=== PATIENT | female | born 1940 | race Hispanic/Latino ===

== ENCOUNTER 2016-12-05 10:54 | Outpatient (CLI) | payer MEDICARE ==
--- NOTE | 2016-12-06 11:39 | PET Report ---
PET/CT:12/05/16 10:54:00 CLINICAL: Lung cancer staging. RADIOPHARMACEUTICAL: 13.192mCi F18-FDG. COMPARISON: 02/22/16 PET/CT and CT chest 10/03/16 and 05/29/16 TECHNIQUE- Following intravenous injection of F-18 FDG and an approximately 60 minute uptake period, CT and PET images from the mid skull to the upper thighs were acquired with the patient in the fasted state. No contrast was administered. The CT protocol used for this PET CT study is designed for attenuation correction and anatomic localization of PET abnormalities. This applications manager CT is not desired to produce and cannot replace, [id number] diagnostic CT scans with specific imaging protocols for different body parts and indications. Plasma glucose at the time of this test: 94g/dl. The standardized uptake values (SUV) are normalized to patient body weight and indicate the highest activity concentration (SUV max) in a given disease site. FINDINGS: Brain--Physiologic FDG uptake in the visualized regions of the brain. Neck--Physiologic FDG uptake . Chest--Physiologic FDG uptake in mediastinal blood pool and myocardium. Lungs--The previously described right upper lobe spiculated lung opacity has increased in size and density compared to previous exams. It now measures approximately 2.4 x 2.3 cm with avid FDG uptake and SUV 9.2. It has developed mild central cavitation. No other lung nodule or mass. Stable moderate diffuse emphysema. Pleura/pericardium--No abnormal uptake. Thoracic nodes--No abnormal uptake. Hepatobiliary--No abnormal uptake. Liver background SUV mean, as a reference for comparing FDG studies, is 3.4 compared to 3.3 on the last exam. No liver mass. Spleen--No abnormal uptake. Pancreas--No abnormal uptake. Adrenal Glands--No abnormal uptake. Kidneys/Ureters/Bladder--No abnormal uptake. Abdominopelvic Nodes--No abnormal uptake. Bowel/Peritoneum/Mesentery--No abnormal uptake. Pelvic organs--No abnormal uptake. Bones/Soft Tissues--No abnormal uptake. No suspicious bone lesions. IMPRESSION- 1. A 2.4 cm right upper lobe bronchogenic carcinoma. 2. No evidence of metastasis.
== END 2016-12-05 10:55 | disposition home or self-care (01) ==
LOC: PET 10:54
DX: C10.4 Malignant neoplasm of branchial cleft (principal); J43.9 Emphysema, unspecified
CPT/HCPCS: 78815; 82962; A9552

== ENCOUNTER 2017-04-21 10:51 | Outpatient (CLI) | payer MEDICARE ==
--- NOTE | 2017-04-22 14:17 | Cat Scan Report ---
CT CHEST WITH CONTRAST: 04/21/17 10:51:00 CLINICAL: Malignant neoplasm right lung. Comparison: 10/03/16 TECHNIQUE: Volumetric acquisition and 1.25 mm scan reconstructions after the uneventful intravenous injection of 100cc Omnipaque 300. Consent was obtained prior to the administration of contrast. FINDINGS: A right upper lobectomy has been performed since the last exam. A small right pleural effusion and probable loculated pleural fluid in the right apex. No pulmonary nodule or mass. Moderate diffuse emphysema. Stable left apical pleural scar. No hilar or mediastinal lymphadenopathy. Normal trachea and esophagus. Normal heart and pulmonary arteries. Aortic ectasia. No axillary or supraclavicular lymphadenopathy. The upper abdomen is remarkable for stable fullness in the left adrenal gland but no distinct adrenal mass. Stable mild chronic anterior compression fractures of the T3, T4 and T5 vertebral bodies. These were negative previously but had and have been stable. IMPRESSION: Status post right upper lobectomy. Small right pleural effusion and possible loculated pleural fluid in the right apex. Stable emphysema. No evidence of metastasis.
== END 2017-04-21 10:52 | disposition home or self-care (01) ==
LOC: SPVIMAG 10:51
PROVIDERS: ATTEND Internal Medicine Hematology & Oncology
DX: C34.91 Malignant neoplasm of unspecified part of right bronchus or lung (principal); J43.9 Emphysema, unspecified; J90 Pleural effusion, not elsewhere classified; I77.819 Aortic ectasia, unspecified site; M48.54XA Collapsed vertebra, not elsewhere classified, thoracic region, initial encounter for fracture; Z90.2 Acquired absence of lung [part of]; Z79.899 Other long term (current) drug therapy
CPT/HCPCS: 71260; 82962; Q9967

== ENCOUNTER 2017-10-23 10:14 | Outpatient (CLI) | payer MEDICARE ==
--- NOTE | 2017-10-23 12:43 | Cat Scan Report ---
CT CHEST WITH CONTRAST: 10/23/17 10:14:00 CLINICAL: Lung cancer restaging. Comparison: 04/21/17 TECHNIQUE: Volumetric acquisition and 1.25 mm scan reconstructions after the uneventful intravenous injection of 100cc Omnipaque 300. Consent was obtained prior to the administration of contrast. FINDINGS: Status post right upper lobectomy with stable fluid density in the right apical pleural space. No pulmonary nodule or mass. Stable bilateral centrilobular emphysema. No mediastinal or hilar lymphadenopathy. Normal heart and pulmonary vessels. Stable aortic ectasia and calcification. Normal trachea and esophagus. A thyroid is not identified. No axillary or supraclavicular lymphadenopathy. The upper abdomen is remarkable for stable fullness in the left adrenal gland and no adrenal mass. No suspicious bone lesion. Stable chronic anterior wedge compression fractures of T3, T4 and T5. IMPRESSION: No evidence of disease recurrence or metastasis. Status post right upper lobectomy with stable loculated fluid density in the right apex.
== END 2017-10-23 10:15 | disposition home or self-care (01) ==
LOC: SPVIMAG 10:14
PROVIDERS: ATTEND Internal Medicine Hematology & Oncology
DX: C34.91 Malignant neoplasm of unspecified part of right bronchus or lung (principal); J43.2 Centrilobular emphysema; I77.819 Aortic ectasia, unspecified site; I70.0 Atherosclerosis of aorta; M48.54XA Collapsed vertebra, not elsewhere classified, thoracic region, initial encounter for fracture; Z90.2 Acquired absence of lung [part of]
CPT/HCPCS: 71260; Q9967

== ENCOUNTER 2019-05-04 10:15 | Inpatient (IN) | payer MEDICARE ==
--- NOTE | 2019-05-04 10:45 | Cat Scan Report ---
CT HEAD WITHOUT CONTRAST HISTORY: neuro deficits <6hrs or sx present upon awakening. Code stroke TECHNIQUE: Axial imaging performed from the skull apex through the skull base without the use of con trast. All CT scans at this location are performed using CT dose reduction for ALARA by means of aut omated exposure control. COMPARISON: None FINDINGS: Parenchyma: No acute intracranial hemorrhage or parenchymal abnormality.. Mild hypoattenuation thro ughout the white matter is noted and consistent with chronic microvascular ischemic disease. An appro ximate 1 cm subacute to chronic infarct is suspected in the right superior basal ganglia. No evidence for hemorrhage, mass or extra-axial fluid collection. Ventricles: There is mild diffuse brain atrophy with commensurate ventricular enlargement which is l ikely age appropriate. Soft tissues: Soft tissues including the orbits appear normal. Bones: No acute osseous abnormality. Sinuses: Sinuses and mastoid air cells are clear. IMPRESSION: Volume loss and chronic white matter changes. Subacute to early chronic focal infarct in the superior right basal ganglia suspected. These findings were discussed with Dr. Miller in the emergency department at 1039 hours. Signer Name: Afshin Lowry Jr, MD Signed: 05/04/2019 10:41 AM Workstation Name: [id number]
--- NOTE | 2019-05-04 10:46 | Emergency Department Report ---
ED Neuro Deficit HPI - General Stated Complaint: STROKE Time Seen by Provider: 05/04/19 10:36 - History of Present Illness Initial Comments: [facility] Date of Service: 05/04/2019 10:06:07 Impression: RO Acute Ischemic Stroke Left Hemispheric Mechanism of Stroke: Possible Thromboembolic Possible Cardioembolic Metrics: Last Known Well: 05/04/2019 09:00:59 [employer] Notification Time: 05/04/2019 10:05:24 Arrival Time: 05/04/2019 10:15:45 Stamp Time: 05/04/2019 10:06:07 Time First Login Attempt: 05/04/2019 10:12:25 Video Start Time: 05/04/2019 10:12:25 Symptoms: difficulty speaking NIHSS Start Assessment Time: 05/04/2019 10:27:57 Patient is not a candidate for tPA. Patient was not deemed candidate for tPA thrombolytics because of Eliquis taken in the previous 48 hours.. Video End Time: 05/04/2019 10:37:04 CT head was not reviewed. Advanced imaging CTA head and neck obtained. Advanced imaging CTP obtained. ER physician not notified of the decision on thrombolytics management. Comments: acute onset expressive aphasia - concerning for L frontotemporal stroke. She is unfortunately not a candidate for IV tpa as she took Eliquis in the past 48 hours. CTA/P head/neck pending. Our recommendations are outlined below. Recommendations: Initiate Aspirin 325 MG Daily Lipid Panel to Be Obtained, if Not Done in the Last Three Months Therapies: Physical Therapy, Occupational Therapy, Speech Therapy Assessment When Applicable Dysphaghia Screen: Swallow Evaluation, Bedside NPO Until Swallow Evaluation DVT prophylaxis: Choice of Primary Team Disposition: Follow up with Teleneurology Follow up Sign Out: Discussed with Emergency Department Provider History of Present Illness: Patient is a 78 years old Female. Patient was brought by EMS for symptoms of difficulty speaking 78 yo woman with a hx of afib off AC for an endoscopy developed acute onset confusion and slurred speech starting at approx 0915 per EMS. She has a PM. She has having difficulty using the right arm. She was with family when this started. No significant change per EMS. She last took her Eliquis Friday evening, which was confirmed to be less than 48 hours ago per her . CT head was not reviewed. Examination: 1A: Level of Consciousness - Alert; keenly responsive + 0 1B: Ask Month and Age - 1 Question Right + 1 1C: Blink Eyes & Squeeze Hands - Performs Both Tasks + 0 2: Test Horizontal Extraocular Movements - Normal + 0 3: Test Visual Goss - No Visual Loss + 0 4: Test Facial Palsy (Use Grimace if Obtunded) - Normal symmetry + 0 5A: Test Left Arm Motor Drift - No Drift for 10 Seconds + 0 5B: Test Right Arm Motor Drift - No Drift for 10 Seconds + 0 6A: Test Left Leg Motor Drift - No Drift for 5 Seconds + 0 6B: Test Right Leg Motor Drift - No Drift for 5 Seconds + 0 7: Test Limb Ataxia (FNF/Heel-Quezada) - No Ataxia + 0 8: Test Sensation - Normal; No sensory loss + 0 9: Test Language/Aphasia - Mild-Moderate Aphasia: Some Obvious Changes, Without Significant Limitation + 1 10: Test Dysarthria - Mild-Moderate Dysarthria: Slurring but can be understood + 1 11: Test Extinction/Inattention - No abnormality + 0 NIHSS Score: 3 Patient was informed the Neurology Consult would happen via TeleHealth consult by way of interactive audio and video telecommunications and consented to receiving care in this manner. Due to the immediate potential for life-threatening deterioration due to underlying acute neurologic illness, I spent 35 minutes providing critical care. This time includes time for face to face visit via telemedicine, review of medical records, imaging studies and discussion of findings with providers, the patient and/or family. Dr Rhys Calhoun [facility] - Related Data Allergies/Adverse Reactions: Allergies Allergy/AdvReac Type Severity Reaction Status Date / Time Penicillins Allergy Rash Unverified 02/22/16 08:27 ED Review of Systems ROS: Stated complaint: STROKE Other details as noted in HPI ED Neuro Physical Exam - General Suspected Stroke: Yes - NIHSS Assessment Interval: Baseline 1a. Level of Consciousness: alert/keenly responsive 1b. LOC Questions: answers 1 question correctly 1c. LOC Commands: performs tasks correctly 2. Best Gaze: normal 3. Visual: no visual loss 4. Facial Palsy: normal symmetrical movement 5b. Motor Arm Right: no drift 5a. Motor Arm Left: no drift 6a. Motor Leg Left: no drift 6b. Motor Leg Right: no drift 7. Limb Ataxia: absent 8. Sensory: normal 9. Best Language: mild/moderate aphasia 10. Dysarthria: mild/moderate dysarthria 11. Extinction/Inattention: no abnormality Total Score: 3 Stroke Severity: Minor Stroke Critical care attestation.: If time is entered above; I have spent that time in minutes in the direct care of this critically ill patient, excluding procedure time. ED Disposition Clinical Impression: Aphasia Disposition: DC-09 OP ADMIT IP TO THIS HOSP Is pt being admited?: Yes Condition: Stable
--- NOTE | 2019-05-04 11:00 | Emergency Department Report ---
ED Neuro Deficit HPI - General Stated Complaint: STROKE Time Seen by Provider: 05/04/19 10:36 Source: family, EMS - History of Present Illness Initial Comments: 78-year-old female presents to ED with onset slurred speech, right-sided weakness at approximately 9:15 AM. reports patient complained of her vision, began to drop the newspaper with her right hand and developed slurred speech. states patient was normal prior to 9:15 AM, states she was able to make breakfast and eating, states her speech was also normal earlier this morning. Patient has history of A. fib, stop taking her Eliquis approximately 36 hours ago in preparation for an endoscopy later on this week. -: This morning Last Observed Normal: 09:00 Location: speech, right arm Presenting Symptoms: Present: Weak/Paralyzed One Side, Unable to Speak Clearly History of same: No Place: home Severity: moderate Improves With: none Worsens With: none On Anticoagulants: Yes (eliquis) Context: sudden onset Treatments Prior to Arrival: none - Related Data Home Medications: Home Medications Medication Instructions Recorded Confirmed Last Taken Apixaban [Eliquis] 2.5 mg PO BID 05/04/19 05/04/19 05/02/19 Clorazepate Dipotassium [Tranxene 7.5 mg PO BID 05/04/19 05/04/19 Unknown T-Tab] Levothyroxine [Synthroid] 75 mcg PO QAM 05/04/19 05/04/19 Unknown Losartan [Cozaar] 100 mg PO QDAY 05/04/19 05/04/19 Unknown Metoprolol Tartrate 200 mg PO BID 05/04/19 05/04/19 Unknown Tiotropium Br/Olodaterol HCl 4 gm IH BID 05/04/19 05/04/19 Unknown [Stiolto Respimat Inhal [place]] cloNIDine [Catapres] 0.1 mg PO QDAY 05/04/19 05/04/19 Unknown hydrALAZINE [Apresoline] 50 mg PO TID 05/04/19 05/04/19 Unknown Allergies/Adverse Reactions: Allergies Allergy/AdvReac Type Severity Reaction Status Date / Time lidocaine Allergy Unknown Verified 05/04/19 15:18 Penicillins Allergy Rash Unverified 02/22/16 08:27 all the (akhil) meds Allergy Unknown Uncoded 05/04/19 15:18 ED Review of Systems ROS: Stated complaint: STROKE Other details as noted in HPI Comment: All other systems reviewed and negative Neurological: weakness, other (reports slurred speech) ED Past Medical Hx - Medications Home Medications: Home Medications Medication Instructions Recorded Confirmed Last Taken Type Apixaban [Eliquis] 2.5 mg PO BID 05/04/19 05/04/19 05/02/19 History Clorazepate Dipotassium [Tranxene 7.5 mg PO BID 05/04/19 05/04/19 Unknown History T-Tab] Levothyroxine [Synthroid] 75 mcg PO QAM 05/04/19 05/04/19 Unknown History Losartan [Cozaar] 100 mg PO QDAY 05/04/19 05/04/19 Unknown History Metoprolol Tartrate 200 mg PO BID 05/04/19 05/04/19 Unknown History Tiotropium Br/Olodaterol HCl 4 gm IH BID 05/04/19 05/04/19 Unknown History [Stiolto Respimat Inhal [place]] cloNIDine [Catapres] 0.1 mg PO QDAY 05/04/19 05/04/19 Unknown History hydrALAZINE [Apresoline] 50 mg PO TID 05/04/19 05/04/19 Unknown History ED Neuro Physical Exam - General Limitations: Altered Mental Status General appearance: alert, in no apparent distress Suspected Stroke: Yes - Head Head exam: Present: atraumatic, normocephalic - Eye Eye exam: Present: normal appearance, PERRL, EOMI - ENT ENT exam: Present: mucous membranes moist - Neck Neck exam: Present: normal inspection - Respiratory Respiratory exam: Present: normal lung sounds bilaterally. Absent: respiratory distress - Cardiovascular Cardiovascular Exam: Present: regular rate, irregular rhythm - GI/Abdominal GI/Abdominal exam: Present: soft. Absent: distended, tenderness - Extremities Exam Extremities exam: Present: normal inspection - Neurological Exam Neurological exam: Present: alert, motor sensory deficit. Absent: CN II-XII intact - NIHSS Assessment Interval: Baseline 1a. Level of Consciousness: alert/keenly responsive 1b. LOC Questions: answers 1 question correctly 1c. LOC Commands: performs tasks correctly 2. Best Gaze: normal 3. Visual: no visual loss 4. Facial Palsy: normal symmetrical movement 5b. Motor Arm Right: no drift 5a. Motor Arm Left: no drift 6a. Motor Leg Left: no drift 6b. Motor Leg Right: no drift 7. Limb Ataxia: absent 8. Sensory: normal 9. Best Language: mild/moderate aphasia 10. Dysarthria: mild/moderate dysarthria 11. Extinction/Inattention: no abnormality Total Score: 3 Stroke Severity: Minor Stroke - Psychiatric Psychiatric exam: Present: normal affect, normal mood - Skin Skin exam: Present: warm, dry, intact, normal color ED Course Vital Signs 05/04/19 05/04/19 05/04/19 10:52 11:01 11:08 Temperature 97.6 F Pulse Rate 64 67 Respiratory 15 19 Rate Blood Pressure 158/96 Blood Pressure 170/97 [Right] O2 Sat by Pulse 95 100 99 Oximetry 05/04/19 05/04/19 05/04/19 11:10 12:31 13:01 Temperature Pulse Rate 64 73 Respiratory 19 19 14 Rate Blood Pressure 171/112 174/105 Blood Pressure [Right] O2 Sat by Pulse 99 98 95 Oximetry 05/04/19 05/04/19 05/04/19 14:05 15:01 16:15 Temperature Pulse Rate 92 H Respiratory 22 2 L Rate Blood Pressure 174/105 Blood Pressure 174/105 179/90 [Right] O2 Sat by Pulse 96 98 Oximetry - Lab Data Result diagrams: 05/04/19 10:45 05/04/19 10:45 Lab Results 05/04/19 05/04/19 05/04/19 Range/Units 10:45 10:45 10:45 WBC 7.7 (4.5-11.0) K/mm3 RBC 4.17 (3.65-5.03) M/mm3 Hgb 13.6 (10.1-14.3) gm/dl Hct 40.0 (30.3-42.9) % MCV 96 (79-97) fl MCH 33 H (28-32) pg MCHC 34 (30-34) % RDW 14.6 (13.2-15.2) % Plt Count 208 (140-440) K/mm3 Lymph % (Auto) 8.0 L (13.4-35.0) % [place] % (Auto) 7.9 H (0.0-7.3) % Eos % (Auto) 3.0 (0.0-4.3) % Baso % (Auto) 0.6 (0.0-1.8) % Lymph # 0.6 L (1.2-5.4) K/mm3 [place] # 0.6 (0.0-0.8) K/mm3 Eos # 0.2 (0.0-0.4) K/mm3 Baso # 0.0 (0.0-0.1) K/mm3 Seg Neutrophils % 80.5 H (40.0-70.0) % Seg Neutrophils # 6.2 (1.8-7.7) K/mm3 PT 15.1 H (12.2-14.9) Sec. INR 1.22 H (0.87-1.13) APTT 35.3 (24.2-36.6) Sec. Thrombin Time (15.1-19.6) Sec. Sodium 136 L (137-145) mmol/L Potassium 3.9 (3.6-5.0) mmol/L Chloride 97.0 L (98-107) mmol/L Carbon Dioxide 24 (22-30) mmol/L Anion Gap 19 mmol/L BUN 11 (7-17) mg/dL Creatinine 0.6 L (0.7-1.2) mg/dL Estimated GFR > 60 ml/min BUN/Creatinine Ratio 18 % Glucose 90 (65-100) mg/dL Calcium 9.2 (8.4-10.2) mg/dL Troponin T < 0.010 (0.00-0.029) ng/mL 05/04/19 Range/Units 10:45 WBC (4.5-11.0) K/mm3 RBC (3.65-5.03) M/mm3 Hgb (10.1-14.3) gm/dl Hct (30.3-42.9) % MCV (79-97) fl MCH (28-32) pg MCHC (30-34) % RDW (13.2-15.2) % Plt Count (140-440) K/mm3 Lymph % (Auto) (13.4-35.0) % [place] % (Auto) (0.0-7.3) % Eos % (Auto) (0.0-4.3) % Baso % (Auto) (0.0-1.8) % Lymph # (1.2-5.4) K/mm3 [place] # (0.0-0.8) K/mm3 Eos # (0.0-0.4) K/mm3 Baso # (0.0-0.1) K/mm3 Seg Neutrophils % (40.0-70.0) % Seg Neutrophils # (1.8-7.7) K/mm3 PT (12.2-14.9) Sec. INR (0.87-1.13) APTT (24.2-36.6) Sec. Thrombin Time 15.7 (15.1-19.6) Sec. Sodium (137-145) mmol/L Potassium (3.6-5.0) mmol/L Chloride (98-107) mmol/L Carbon Dioxide (22-30) mmol/L Anion Gap mmol/L BUN (7-17) mg/dL Creatinine (0.7-1.2) mg/dL Estimated GFR ml/min BUN/Creatinine Ratio % Glucose (65-100) mg/dL Calcium (8.4-10.2) mg/dL Troponin T (0.00-0.029) ng/mL - EKG Data -: EKG Interpreted by In EKG shows normal: QRS complexes, ST-T waves Interpretation: other (aftrial fib; right axis deviation; occasional PVC's) - Radiology Data Radiology results: report reviewed, image reviewed - Medical Decision Making 78-year-old female presents ED with aphasia and dysarthria. Likely embolic in nature due to his history of A. fib, patient being off of her Eliquis. CT shows no evidence of hemorrhagic stroke. Patient not a candidate for TPA because she has taken Eliquis in the last 48 hrs. CTA negative for any large vessel occlusion. Will admit to hospitalist for further management. - Differential Diagnosis ischemic CVA, hemorrhagic CVA, TIA - Thrombolytic Inclusion/Exclusion Thrombolytic Contraindications: Patient on Anticoagulants Critical Care Time: Yes Critical care time in (mins) excluding proc time.: 35 Critical care attestation.: If time is entered above; I have spent that time in minutes in the direct care of this critically ill patient, excluding procedure time. Critical Care Time: 35 minutes ED Disposition Clinical Impression: Aphasia Disposition: DC-09 OP ADMIT IP TO THIS HOSP Is pt being admited?: Yes Condition: Stable Time of Disposition: 13:50
[2019-05-04 11:13] LABS: Basophils % (Auto) 0.6 % (0.0-1.8); Eosinophils # (Auto) 0.2 K/mm3 (0.0-0.4); Hemoglobin 13.6 gm/dl (10.1-14.3); Lymphocytes # (Auto) 0.6 K/mm3 (1.2-5.4); Mean Corpuscular HGB Conc 34 % (30-34); Mean Corpuscular Volume 96 fl (79-97); Monocytes # (Auto) 0.6 K/mm3 (0.0-0.8); Monocytes % (Auto) 7.9 % (0.0-7.3); Platelet Count 208 K/mm3 (140-440); Red Blood Count 4.17 M/mm3 (3.65-5.03); Red Cell Distribution Width 14.6 % (13.2-15.2)
[2019-05-04 11:22] LABS: INR 1.22 (0.87-1.13)
[2019-05-04 11:23] LABS: Partial Thromboplastin Time 35.3 Sec. (24.2-36.6)
[2019-05-04 11:29] LABS: BUN/Creatinine Ratio 18; Blood Urea Nitrogen 11 mg/dL (7-17); Calcium 9.2 mg/dL (8.4-10.2); Hemolysis Index 26
[2019-05-04] MEDS ORDERED: DULCOLAX PR PRN (13:20)
[2019-05-04] MEDS ORDERED: MILK OF MAGNESIA PO PRN (13:20)
[2019-05-04] MEDS ORDERED: PHENERGAN PR PRN (13:20)
[2019-05-04] MEDS ORDERED: TYLENOL PO PRN (13:20)
[2019-05-04] MEDS ORDERED: ZOFRAN IV PRN (13:20)
--- NOTE | 2019-05-04 13:20 | History and Physical Report ---
History of Present Illness Chief complaint: She is weak, and cannot talk History of present illness: 78 YO Female with Malnutrition, Atrial Fib on Therapeutic Anticoagulation last dose taken less than 48 hours prior to presentation to ED, Malnutrition presents to ED for evaluation. Pt has dysarthria and is unable to speak clearly and provide history. Pt history taken from family members who are at bedside during exam and interview. As per family, the patient experienced acute onset of blurred vision, right arm and leg weakness with inability to hold object in her right hand, and slurred speech around 0915 hrs. EMS was notified, and upon arrival the patient was found to have neurologic deficit. A code stroke was called and the patient was transported to [facility]. Pt seen and evaluated in ED and found to have symptoms consistent with Acute CVA. Teleneurology consulted and the patient was deemed not to be a candidate for TPA. Pt admitted to Telemetry and initiated on CVA protocol. NO reports to fever, chills, CP, Palpitations, NVD, Trauma, falls, productive cough, skin rash, or recent ill contacts. No prior admission for review. All medication listed at time of admission was reconciled. Past History Past Medical History: atrial fib, other (Malnutrition) Past Surgical History: No surgical history, Other (reviewed) Social history: , lives with family. denies: smoking, alcohol abuse, prescription drug abuse Family history: hypertension Medications and Allergies Allergies Allergy/AdvReac Type Severity Reaction Status Date / Time lidocaine Allergy Unknown Verified 05/04/19 15:18 Penicillins Allergy Rash Unverified 02/22/16 08:27 all the (akhil) meds Allergy Unknown Uncoded 05/04/19 15:18 Home Medications Medication Instructions Recorded Confirmed Last Taken Type Apixaban [Eliquis] 2.5 mg PO BID 05/04/19 05/04/19 05/02/19 History Clorazepate Dipotassium [Tranxene 7.5 mg PO BID 05/04/19 05/04/19 Unknown History T-Tab] Levothyroxine [Synthroid] 75 mcg PO QAM 05/04/19 05/04/19 Unknown History Losartan [Cozaar] 100 mg PO QDAY 05/04/19 05/04/19 Unknown History Metoprolol Tartrate 200 mg PO BID 05/04/19 05/04/19 Unknown History Tiotropium Br/Olodaterol HCl 4 gm IH BID 05/04/19 05/04/19 Unknown History [Stiolto Respimat Inhal [place]] cloNIDine [Catapres] 0.1 mg PO QDAY 05/04/19 05/04/19 Unknown History hydrALAZINE [Apresoline] 50 mg PO TID 05/04/19 05/04/19 Unknown History Review of Systems ROS unobtainable: due to mental status Exam - Constitutional Vitals: Temp Pulse Resp BP Pulse Ox 97.6 F 73 14 174/105 95 05/04/19 11:08 05/04/19 13:01 05/04/19 13:01 05/04/19 13:01 05/04/19 13:01 General appearance: Present: mild distress - EENT Eyes: Present: PERRL ENT: hearing intact, clear oral mucosa - Neck Neck: Present: supple, normal ROM - Respiratory Respiratory effort: normal Respiratory: bilateral: CTA - Cardiovascular Rhythm: irregularly irregular - Extremities Extremities: pulses symmetrical, No edema Peripheral Pulses: within normal limits - Abdominal General gastrointestinal: Present: soft, non-tender, non-distended, normal bowel sounds Female genitourinary: Present: normal - Integumentary Integumentary: Present: clear, warm, dry - Musculoskeletal Musculoskeletal: right sided weakness - Psychiatric Psychiatric: no appropriate mood/affect, no intact judgment & insight, no memory intact - Neurologic Neurologic: CNII-XII intact, focal deficits, no moves all extremities, no gait normal Results - Labs CBC & Chem 7: 05/04/19 10:45 05/04/19 10:45 Labs: Abnormal lab results 05/04/19 05/04/19 05/04/19 Range/Units 10:45 10:45 10:45 MCH 33 H (28-32) pg Lymph % (Auto) 8.0 L (13.4-35.0) % [place] % (Auto) 7.9 H (0.0-7.3) % Lymph # 0.6 L (1.2-5.4) K/mm3 Seg Neutrophils % 80.5 H (40.0-70.0) % PT 15.1 H (12.2-14.9) Sec. INR 1.22 H (0.87-1.13) Sodium 136 L (137-145) mmol/L Chloride 97.0 L (98-107) mmol/L Creatinine 0.6 L (0.7-1.2) mg/dL Assessment and Plan - Patient Problems (1) CVA (cerebral vascular accident) Current Visit: Yes Status: Acute Qualifiers: Precerebral and cerebral artery: middle cerebral artery Laterality of affected vessel: left Plan to address problem: CVA Protocol: Admit to telemetry, CT Head, MRI Brain, MRA Brain, Echo, Carotid Doppler, Neuro check, Neurology consulted, lipid panel, statin therapy, antiplatelet therapy, Aspiration precautions, seizure precautions, PT/OT/Speech Therapy consulted (2) 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 (3) Hypertensive urgency Current Visit: Yes Status: Acute Plan to address problem: Permissive hypertension overnight, monitor BP q shift, (4) Severe malnutrition Current Visit: Yes Status: Acute Plan to address problem: Encourage increased protein intake when tolerating diet. (5) Atrial fibrillation Current Visit: Yes Status: Acute Qualifiers: Atrial fibrillation type: persistent Qualified Code(s): I48.1 - Persistent atrial fibrillation Plan to address problem: Therapeutic anticoagulation. supportive care. (6) DVT prophylaxis Current Visit: Yes Status: Acute Plan to address problem: SCD to BLE while in bed, therapeutic anticoagulation.
--- NOTE | 2019-05-04 13:40 | Cat Scan Report ---
NECK CT ANGIOGRAM 05/04/2019 HISTORY: Stroke. FINDINGS: Contrast-enhanced CT angiographic images of the neck were obtained. In addition to the axia l images, sagittal and coronal reformatted images were obtained. In addition, 3 plane MIP reconstruct ions were produced. There is no evidence of carotid bifurcation stenosis. Mild atherosclerotic calcifications are associa terrence with the carotid bifurcations and aortic arch. There is some atherosclerotic irregularity and narrowing at the origin of the dominant left vertebral artery. The right vertebral artery is relatively hypoplastic but otherwise unremarkable. Soft tissue structures in the neck demonstrate no evidence of significant abnormality. IMPRESSION: No evidence of significant or measurable carotid bifurcation stenosis. NASCET like criteria were used in this evaluation. All CT scans at this location are performed using dose reduction to ALARA by means of automated expos ure control. Signer Name: Stephan Santiago MD Signed: 05/04/2019 1:36 PM Workstation Name: [id number]
--- NOTE | 2019-05-04 13:45 | Cat Scan Report ---
HEAD CT ANGIOGRAM 05/04/2019 HISTORY: Stroke FINDINGS: Contrast-enhanced CT angiographic images of the intracranial circulation were obtained. In addition to the axial images, sagittal and coronal reformatted images were obtained. In addition, 3 p jaleel MIP reconstructions were produced. Atherosclerotic vascular calcifications are associated with the distal internal carotid arteries bila terally, slightly more prominently on the right than on the left. This results in moderate narrowing of the distal right internal carotid artery at the level of the cavernous sinus. Is also some atherosclerotic calcification associated with the proximal intracranial vertebral arteri es bilaterally. Intracranial contours are otherwise unremarkable. There is no evidence of vessel occlusion. There is no evidence of aneurysm. IMPRESSION: No significant abnormality. All CT scans at this location are performed using dose reduction to ALARA by means of automated expos ure control. Signer Name: Stephan Santiago MD Signed: 05/04/2019 1:40 PM Workstation Name: [id number]
[2019-05-04] MEDS ORDERED: REGLAN PO PRN (14:20)
--- NOTE | 2019-05-04 14:25 | Vascular Lab Report ---
BILATERAL CAROTID DOPPLER ULTRASOUND INDICATION : stroke TECHNIQUE: Grayscale and color Doppler imaging performed through the neck. COMPARISON: None FINDINGS: Right: There is mild partially calcified plaques are noted at the bifurcation. Peak systolic veloci ty in the CCA is 46 cm/s with end-diastolic velocity of 10 cm/s. Peak systolic velocity in the proxim al ICA is 56 cm/s with end-diastolic velocity of 17 cm/s. ICA to CCA ratio is less than 2. There is a ntegrade flow in the ECA and the vertebral artery. Left: There is moderate partially calcified plaques are noted at the bifurcation and proximal ICA. Pe ak systolic velocity in the CCA is 26 cm/s with end-diastolic velocity of 7 cm/s. Peak systolic veloc ity in the proximal ICA is 68 cm/s with end-diastolic velocity of 15 cm/s. ICA to CCA ratio is less t rausch 2. There is antegrade flow in the ECA and the vertebral artery. IMPRESSION: No hemodynamically significant stenosis by NASCET criteria. Mild to moderate partially ca lcified plaques at both carotid bifurcations. There is less than 50% luminal narrowing bilaterally. Signer Name: Afshin Lowry Jr, MD Signed: 05/04/2019 2:20 PM Workstation Name: [id number]
--- NOTE | 2019-05-04 18:34 | Progress Note ---
Assessment and Plan This is an 78 YO F who clinically had a TIA, likely secondary to being off of Eliquis for a procedure. REcommend: Will start standard heparin drip, no bolus for now(pharmacy to enter). Perhaps she can get the EGD in house. Consider GI consult. If this will not happen fine to switch back to Eliquis Stroke work up- echo, carotids, lipids and A1C, PT/OT/ST , MRI BRain and MRA, will need pretreatment with Ativan Continue care for all medical issues as you are doing. POC discussed at length with pt and daughter at bedside. Subjective Date of service: 05/04/19 Interval history: Pt seen by teleneur on arrival. Pt with known afib, off Eliquis at least 2 days for GI procedure. Pt presented with dysarthria and right sided weakness. Back at baseline now. she was evaluated for Alteplase and found not to be a candidate. Objective - Vital Sign Vital Signs - 12hr 05/04/19 05/04/19 05/04/19 10:52 11:01 11:08 Temperature 97.6 F Pulse Rate 64 67 Pulse Rate [ Left Dorsalis Pedis] Pulse Rate [ Left Radial] Pulse Rate [ Right Dorsalis Pedis] Pulse Rate [ Right Radial] Respiratory 15 19 Rate Blood Pressure 158/96 Blood Pressure 170/97 [Right] O2 Sat by Pulse 95 100 99 Oximetry 05/04/19 05/04/19 05/04/19 11:10 12:31 13:01 Temperature Pulse Rate 64 73 Pulse Rate [ Left Dorsalis Pedis] Pulse Rate [ Left Radial] Pulse Rate [ Right Dorsalis Pedis] Pulse Rate [ Right Radial] Respiratory 19 19 14 Rate Blood Pressure 171/112 174/105 Blood Pressure [Right] O2 Sat by Pulse 99 98 95 Oximetry 05/04/19 05/04/19 05/04/19 14:05 15:01 16:15 Temperature Pulse Rate 92 H Pulse Rate [ Left Dorsalis Pedis] Pulse Rate [ Left Radial] Pulse Rate [ Right Dorsalis Pedis] Pulse Rate [ Right Radial] Respiratory 22 2 L Rate Blood Pressure 174/105 Blood Pressure 174/105 179/90 [Right] O2 Sat by Pulse 96 98 Oximetry 05/04/19 05/04/19 17:02 17:46 Temperature Pulse Rate 60 Pulse Rate [ 60 Left Dorsalis Pedis] Pulse Rate [ 60 Left Radial] Pulse Rate [ 60 Right Dorsalis Pedis] Pulse Rate [ 60 Right Radial] Respiratory 18 Rate Blood Pressure Blood Pressure [Right] O2 Sat by Pulse Oximetry - General Apperance Constitutional: comfortable - EENT EENT: mucous membranes moist - Respiratory Respiratory: lungs clear - Cardiovascular Cardiovascular: other (irregular) - Gastrointestinal Gastrointestinal: normoactive bowel sounds - Neurologic Cranial nerve examination: PERRL, EOMI, V1/V2/V3 grossly intact, face symmetric, tongue midline Speech examination: intact Motor examination - right side: 5/5: biceps, triceps, wrist flexion, wrist extension, marking machine operator, hip flexors, knee extensors, dorsiflexion, toe extension (EHL), plantarflexion Motor examination - left side: 5/5: biceps, triceps, wrist flexion, wrist extension, marking machine operator, hip flexors, knee extensors, dorsiflexion, toe extension (EHL), plantarflexion Detailed sensory examination: intact Reflexes: 1+: ankle, bicep, knee, tricep Cerebellar examination: other (FNF intact) - Laboratory Findings CBC and BMP: 05/04/19 10:45 05/04/19 10:45 Abnormal Lab Findings: Abnormal Labs 05/04/19 05/04/19 05/04/19 10:45 10:45 10:45 MCH 33 H Lymph % (Auto) 8.0 L [place] % (Auto) 7.9 H Lymph # 0.6 L Seg Neutrophils % 80.5 H PT 15.1 H INR 1.22 H Sodium 136 L Chloride 97.0 L Creatinine 0.6 L - Diagnostic Findings Additional findings: CT head nothing acute, no hemorrhage
[2019-05-04 19:40] LABS: Bilirubin,Urine NEG (Negative); Blood,Urine NEG (Negative); Color,Urine Yellow (Yellow); Urobilinogen,Urine < 2.0 mg/dL (<2.0)
[2019-05-04 19:43] LABS: WBC,Urine < 1.0 /HPF (0.0-6.0)
[2019-05-04 19:50] LABS: Hematocrit 37.4 % (30.3-42.9); Hemoglobin 12.6 gm/dl (10.1-14.3)
[2019-05-04 20:04] LABS: INR 1.9 (0.87-1.13)
[2019-05-04 20:05] LABS: Partial Thromboplastin Time 42.4 Sec. (24.2-36.6)
[2019-05-04] MEDS: HEPARIN/ 0.45% NACL-25,000 UNIT/500 ML 25,000 UNIT/500 ML BAG IV SCH (20:30)
[2019-05-04] MEDS: TRANXENE PO SCH (21:32)
[2019-05-04] MEDS ORDERED: NON-FORMULARY (Tiotropium Br/Olodaterol Hcl [Stiolto Respimat Inhal Spray] 4 GM) IH SCH (22:00)
[2019-05-04] MEDS ORDERED: ELIQUIS PO SCH (22:00)
[2019-05-04] MEDS ORDERED: CLORAZEPATE DIPOTASSIUM 7.5 MG PO SCH (22:00)
[2019-05-05 04:10] LABS: Chol/HDL Ratio 2.07 %
[2019-05-05] MEDS: SYNTHROID PO SCH (05:41)
--- NOTE | 2019-05-05 10:50 | Progress Note ---
History Interval history: CVA. Continue with telemetry monitoring. Follow-up CT Head, MRI Brain, MRA Brain, Echo and Carotid Dopplers. Neurology consultation. Hypertension. Continue antihypertensive medications. Atrial fibrillation. Continue heparin drip for now. Dysphagia. GI to perform EGD with possible dilation today. Hospitalist Physical - Constitutional Vitals: Temp Pulse Resp BP Pulse Ox 97.8 F 67 16 153/70 93 05/05/19 08:10 05/05/19 09:33 05/05/19 08:10 05/05/19 08:10 05/05/19 10:33 General appearance: Present: mild distress Results - Labs CBC & Chem 7: 05/04/19 19:30 05/04/19 10:45 Labs: Laboratory Last Values WBC 7.7 K/mm3 (4.5-11.0) 05/04/19 10:45 RBC 4.17 M/mm3 (3.65-5.03) 05/04/19 10:45 Hgb 12.6 gm/dl (10.1-14.3) 05/04/19 19:30 Hct 37.4 % (30.3-42.9) 05/04/19 19:30 MCV 96 fl (79-97) 05/04/19 10:45 MCH 33 pg (28-32) H 05/04/19 10:45 MCHC 34 % (30-34) 05/04/19 10:45 RDW 14.6 % (13.2-15.2) 05/04/19 10:45 Plt Count 192 K/mm3 (140-440) 05/04/19 19:30 Lymph % (Auto) 8.0 % (13.4-35.0) L 05/04/19 10:45 [place] % (Auto) 7.9 % (0.0-7.3) H 05/04/19 10:45 Eos % (Auto) 3.0 % (0.0-4.3) 05/04/19 10:45 Baso % (Auto) 0.6 % (0.0-1.8) 05/04/19 10:45 Lymph # 0.6 K/mm3 (1.2-5.4) L 05/04/19 10:45 [place] # 0.6 K/mm3 (0.0-0.8) 05/04/19 10:45 Eos # 0.2 K/mm3 (0.0-0.4) 05/04/19 10:45 Baso # 0.0 K/mm3 (0.0-0.1) 05/04/19 10:45 Seg Neutrophils % 80.5 % (40.0-70.0) H 05/04/19 10:45 Seg Neutrophils # 6.2 K/mm3 (1.8-7.7) 05/04/19 10:45 PT 21.4 Sec. (12.2-14.9) H 05/04/19 19:30 INR 1.90 (0.87-1.13) H 05/04/19 19:30 APTT 42.4 Sec. (24.2-36.6) H 05/04/19 19:30 15.7 Sec. (15.1-19.6) 05/04/19 10:45 Heparin Anti-Xa Level 0.30 U.I./ml (0.3-0.7) 05/05/19 09:13 Sodium 136 mmol/L (137-145) L 05/04/19 10:45 Potassium 3.9 mmol/L (3.6-5.0) 05/04/19 10:45 Chloride 97.0 mmol/L (98-107) L 05/04/19 10:45 Carbon Dioxide 24 mmol/L (22-30) 05/04/19 10:45 19 mmol/L 05/04/19 10:45 BUN 11 mg/dL (7-17) 05/04/19 10:45 0.6 mg/dL (0.7-1.2) L 05/04/19 10:45 Estimated GFR > 60 ml/min 05/04/19 10:45 18 % 05/04/19 10:45 Glucose 90 mg/dL (65-100) 05/04/19 10:45 Calcium 9.2 mg/dL (8.4-10.2) 05/04/19 10:45 < 0.010 ng/mL (0.00-0.029) 05/04/19 10:45 Triglycerides 41 mg/dL (2-149) 05/05/19 03:03 Cholesterol 85 mg/dL (50-199) 05/05/19 03:03 47 mg/dL (50-130) L 05/05/19 03:03 41 mg/dL (40-59) 05/05/19 03:03 2.07 % 05/05/19 03:03 Yellow (Yellow) 05/04/19 18:45 Clear (Clear) 05/04/19 18:45 8.0 (5.0-7.0) H 05/04/19 18:45 Ur Specific [place] 1.030 (1.003-1.030) 05/04/19 18:45 30 mg/dl mg/dL (Negative) 05/04/19 18:45 Neg mg/dL (Negative) 05/04/19 18:45 Tr mg/dL (Negative) 05/04/19 18:45 Neg (Negative) 05/04/19 18:45 Neg (Negative) 05/04/19 18:45 Neg (Negative) 05/04/19 18:45 < 2.0 mg/dL (<2.0) 05/04/19 18:45 Ur Leukocyte Esterase Neg (Negative) 05/04/19 18:45 < 1.0 /HPF (0.0-6.0) 05/04/19 18:45 2.0 /HPF (0.0-6.0) 05/04/19 18:45 Active Medications - Current Medications Current Medications: Generic Name Dose Route Start Last Admin Trade Name Freq PRN Reason Stop Dose Admin Acetaminophen 650 mg 05/04/19 13:20 Tylenol PO Q4H PRN Pain, Mild (1-3) Aspirin 325 mg 05/05/19 10:00 Aspirin PO QDAY DUANE Bisacodyl 10 mg 05/04/19 13:20 Dulcolax IN QDAY PRN Constipation Clorazepate Dipotassium 7.5 mg 05/04/19 22:00 05/04/19 21:32 Tranxene PO 7.5 mg BID DUANE Administration Heparin Sodium/Sodium Chloride 25,000 unit in 500 mls @ 14 mls/hr 05/04/19 19:00 05/05/19 03:05 Heparin/ 0.45% Nacl-25,000 Unit/500 Ml IV 700 units/hr TITR DUANE 14 mls/hr Titration Protocol 700 UNITS/HR Levothyroxine Sodium 75 mcg 05/05/19 06:00 05/05/19 05:41 Synthroid PO 75 mcg 0600 DUANE Administration Magnesium Hydroxide 30 ml 05/04/19 13:20 Milk Of Magnesia PO Q4H PRN Constipation Metoclopramide HCl 10 mg 05/04/19 14:20 Reglan PO Q6H PRN Nausea And Vomiting Miscellaneous Medication 4 gm 05/04/19 22:00 Tiotropium Br/Olodaterol Hcl [Stiolto Respimat Inhal [place]] IH BID [facility] Ondansetron HCl 4 mg 05/04/19 13:20 Zofran IV Q8H PRN Nausea And Vomiting Promethazine HCl 25 mg 05/04/19 13:20 Phenergan IN Q6H PRN Nausea And Vomiting Sodium Chloride 10 ml 05/04/19 13:20 Sodium Chloride Flush Syringe 10 Ml IV PRN PRN LINE FLUSH
[2019-05-05] MEDS: TRANXENE PO SCH ×2 (11:29→22:08)
[2019-05-05] MEDS: ASPIRIN PO SCH (11:29)
--- NOTE | 2019-05-05 11:36 | Fluoroscopy Report ---
BARIUM SWALLOW Indication: dysphagia. History of esophageal stricture and dilatation. Technique: Single contrast barium technique utilized to evaluate the esophagus. FINDINGS: To begin the exam, swallowing was evaluated in the lateral position under direct fluorosco py. Swallowing was normal. The esophagus appears normal caliber and mucosal pattern throughout. No convincing stricture, ring or web could be demonstrated on barium swallow. There was severe delay in emptying of the esophagus throughout this exam. Numerous tertiary contracti ons were witnessed. No hiatal hernia. IMPRESSION: Severe esophageal dysmotility with delayed emptying was witnessed throughout this exam. No convincing esophageal stricture was identified. Fluoroscopic time: 3.6 minutes Number of fluoroscopic images: 42 Signer Name: Afshin Lowry Jr, MD Signed: 05/05/2019 11:32 AM Workstation Name: [id number]
--- NOTE | 2019-05-05 13:25 | Gastroenterology Consultation ---
<TONA RUFF - Last Filed: 05/05/19 13:29> History of Present Illness - Reason for Consult Consult date: 05/05/19 dysphagia Requesting physician: KHURRAM MICHELLE - History of Present Illness Patient is a 78 y/o female with PMH of HTN, Afib, malnutrition, and COPD who is previously known to our service. She was seen by our group as an inpatient consult at [facility] 02/2019 for dysphagia with an outpatient EGD with possible dilation scheduled for this week, however patient presented to ED with stroke symptoms likely 2/2 TIA per neurology after being off her anticoagulation (Eliquis) x 2 days for procedure. 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 This afternoon patient was resting in bed w/o acute distress with family at bedside. Reports dysphagia to both solids and liquids that has progressively worsened with now inability to tolerate any PO intake. States she had a previous EGD with dilation a long time ago which improved symptoms (record unavailable). Denies abd pain, N/V, or signs of bleeding. Past History Past Medical History: other (as per HPI) Past Surgical History: No surgical history, Other (reviewed) Social history: , lives with family. denies: smoking, alcohol abuse, prescription drug abuse Family history: hypertension Medications and Allergies Allergies Allergy/AdvReac Type Severity Reaction Status Date / Time lidocaine Allergy Unknown Verified 05/04/19 15:18 Penicillins Allergy Rash Unverified 02/22/16 08:27 all the (akhil) meds Allergy Unknown Uncoded 05/04/19 15:18 Home Medications Medication Instructions Recorded Confirmed Last Taken Type Apixaban [Eliquis] 2.5 mg PO BID 05/04/19 05/04/19 05/02/19 History Clorazepate Dipotassium [Tranxene 7.5 mg PO BID 05/04/19 05/04/19 Unknown History T-Tab] Levothyroxine [Synthroid] 75 mcg PO QAM 05/04/19 05/04/19 Unknown History Losartan [Cozaar] 100 mg PO QDAY 05/04/19 05/04/19 Unknown History Metoprolol Tartrate 200 mg PO BID 05/04/19 05/04/19 Unknown History Tiotropium Br/Olodaterol HCl 4 gm IH BID 05/04/19 05/04/19 Unknown History [Stiolto Respimat Inhal [place]] cloNIDine [Catapres] 0.1 mg PO QDAY 05/04/19 05/04/19 Unknown History hydrALAZINE [Apresoline] 50 mg PO TID 05/04/19 05/04/19 Unknown History Active Meds: Active Medications Acetaminophen (Tylenol) 650 mg PO Q4H PRN PRN Reason: Pain, Mild (1-3) Aspirin (Aspirin) 325 mg PO QDAY [facility] Last Admin: 05/05/19 11:29 Dose: Not Given Documented by: Bisacodyl (Dulcolax) 10 mg IA QDAY PRN PRN Reason: Constipation Clorazepate Dipotassium (Tranxene) 7.5 mg PO BID [facility] Last Admin: 05/05/19 11:29 Dose: Not Given Documented by: Heparin Sodium/Sodium Chloride (Heparin/ 0.45% Nacl-25,000 Unit/500 Ml) 25,000 unit in 500 mls @ 14 mls/hr IV TITR [facility]; Protocol Last Titration: 05/05/19 03:05 Dose: 700 units/hr, 14 mls/hr Documented by: Levothyroxine Sodium (Synthroid) 75 mcg PO 0600 [facility] Last Admin: 05/05/19 05:41 Dose: 75 mcg Documented by: Magnesium Hydroxide (Milk Of Magnesia) 30 ml PO Q4H PRN PRN Reason: Constipation Metoclopramide HCl (Reglan) 10 mg PO Q6H PRN PRN Reason: Nausea And Vomiting Miscellaneous Medication (Tiotropium Br/Olodaterol Hcl [Stiolto Respimat Inhal [place]]) 4 gm IH BID [facility] Ondansetron HCl (Zofran) 4 mg IV Q8H PRN PRN Reason: Nausea And Vomiting Promethazine HCl (Phenergan) 25 mg IA Q6H PRN PRN Reason: Nausea And Vomiting Sodium Chloride (Sodium Chloride Flush Syringe 10 Ml) 10 ml IV PRN PRN PRN Reason: LINE FLUSH medications reviewed/updated as required Review of Systems - Review of Systems All systems: negative Gastrointestinal: other (dysphagia) Exam - Constitutional Vital Signs: Temp Pulse Resp BP Pulse Ox 97.8 F 67 16 153/70 93 05/05/19 08:10 05/05/19 09:33 05/05/19 08:10 05/05/19 08:10 05/05/19 10:33 General appearance: no acute distress - Respiratory Respiratory effort: normal - Cardiovascular Rhythm: other (irregular) - Gastrointestinal General gastrointestinal: Present: soft, non-tender, non-distended, normal bowel sounds - Labs CBC & Chem 7: 05/04/19 19:30 05/04/19 10:45 Lab Results: Laboratory Results - last 24 hr 05/04/19 05/04/19 05/04/19 18:45 19:30 19:30 Hgb 12.6 Hct 37.4 Plt Count 192 PT 21.4 H INR 1.90 H APTT 42.4 H Heparin Anti-Xa Level Triglycerides Cholesterol LDL Cholesterol Direct HDL Cholesterol Cholesterol/HDL Ratio Urine Color Yellow Urine Turbidity Clear Urine pH 8.0 H Ur Specific [place] 1.030 Urine Protein 30 mg/dl Urine Glucose (UA) Neg Urine Ketones Tr Urine Blood Neg Urine Nitrite Neg Urine Bilirubin Neg Urine Urobilinogen < 2.0 Ur Leukocyte Esterase Neg Urine WBC (Auto) < 1.0 Urine RBC (Auto) 2.0 05/05/19 05/05/19 05/05/19 03:03 03:03 09:13 Hgb Hct Plt Count PT INR APTT Heparin Anti-Xa Level 0.14 L 0.30 Triglycerides 41 Cholesterol 85 LDL Cholesterol Direct 47 L HDL Cholesterol 41 Cholesterol/HDL Ratio 2.07 Urine Color Urine Turbidity Urine pH Ur Specific [place] Urine Protein Urine Glucose (UA) Urine Ketones Urine Blood Urine Nitrite Urine Bilirubin Urine Urobilinogen Ur Leukocyte Esterase Urine WBC (Auto) Urine RBC (Auto) Assessment and Plan 1.dysphagia -etiology unclear -will order esophagram today for further evaluation and tentatively schedule EGD with possible dilatation tomorrow -hold heparin drip 6 hours prior to EGD -INR in am -Keep NPO for now -continue PPI and supportive care -will follow <DANIEL GANN - Last Filed: 05/05/19 17:57> Medications and Allergies Active Meds: Active Medications Acetaminophen (Tylenol) 650 mg PO Q4H PRN PRN Reason: Pain, Mild (1-3) Aspirin (Aspirin) 325 mg PO QDAY [facility] Last Admin: 05/05/19 11:29 Dose: Not Given Documented by: Bisacodyl (Dulcolax) 10 mg IA QDAY PRN PRN Reason: Constipation Clorazepate Dipotassium (Tranxene) 7.5 mg PO BID [facility] Last Admin: 05/05/19 11:29 Dose: Not Given Documented by: Heparin Sodium/Sodium Chloride (Heparin/ 0.45% Nacl-25,000 Unit/500 Ml) 25,000 unit in 500 mls @ 14 mls/hr IV TITR [facility]; Protocol Last Titration: 05/05/19 03:05 Dose: 700 units/hr, 14 mls/hr Documented by: Dextrose/Sodium Chloride (D5/0.45ns) 1,000 mls @ 75 mls/hr IV DIRECT [facility] Levothyroxine Sodium (Synthroid) 75 mcg PO 0600 [facility] Last Admin: 05/05/19 05:41 Dose: 75 mcg Documented by: Magnesium Hydroxide (Milk Of Magnesia) 30 ml PO Q4H PRN PRN Reason: Constipation Metoclopramide HCl (Reglan) 10 mg PO Q6H PRN PRN Reason: Nausea And Vomiting Miscellaneous Medication (Tiotropium Br/Olodaterol Hcl [Stiolto Respimat Inhal [place]]) 4 gm IH BID [facility] Ondansetron HCl (Zofran) 4 mg IV Q8H PRN PRN Reason: Nausea And Vomiting Promethazine HCl (Phenergan) 25 mg IA Q6H PRN PRN Reason: Nausea And Vomiting Sodium Chloride (Sodium Chloride Flush Syringe 10 Ml) 10 ml IV PRN PRN PRN Reason: LINE FLUSH Exam - Constitutional Vital Signs: Temp Pulse Resp BP Pulse Ox 97.7 F 68 18 167/86 99 05/05/19 16:31 05/05/19 16:31 05/05/19 16:31 05/05/19 16:31 05/05/19 16:31 - Labs CBC & Chem 7: 05/04/19 19:30 05/04/19 10:45 Lab Results: Laboratory Results - last 24 hr 05/04/19 05/04/19 05/04/19 18:45 19:30 19:30 Hgb 12.6 Hct 37.4 Plt Count 192 PT 21.4 H INR 1.90 H APTT 42.4 H Heparin Anti-Xa Level Triglycerides Cholesterol LDL Cholesterol Direct HDL Cholesterol Cholesterol/HDL Ratio Urine Color Yellow Urine Turbidity Clear Urine pH 8.0 H Ur Specific [place] 1.030 Urine Protein 30 mg/dl Urine Glucose (UA) Neg Urine Ketones Tr Urine Blood Neg Urine Nitrite Neg Urine Bilirubin Neg Urine Urobilinogen < 2.0 Ur Leukocyte Esterase Neg Urine WBC (Auto) < 1.0 Urine RBC (Auto) 2.0 05/05/19 05/05/19 05/05/19 03:03 03:03 09:13 Hgb Hct Plt Count PT INR APTT Heparin Anti-Xa Level 0.14 L 0.30 Triglycerides 41 Cholesterol 85 LDL Cholesterol Direct 47 L HDL Cholesterol 41 Cholesterol/HDL Ratio 2.07 Urine Color Urine Turbidity Urine pH Ur Specific [place] Urine Protein Urine Glucose (UA) Urine Ketones Urine Blood Urine Nitrite Urine Bilirubin Urine Urobilinogen Ur Leukocyte Esterase Urine WBC (Auto) Urine RBC (Auto) Assessment and Plan Patient seen and examined. Agree with note above.
[2019-05-05] MEDS ORDERED: D5/0.45NS 1,000 ML IV SCH (16:00)
--- NOTE | 2019-05-05 17:42 | Progress Note ---
Assessment and Plan This is an 78 YO F who clinically had a TIA, likely secondary to being off of Eliquis for a procedure. REcommend: Continue standard heparin drip. EGD in house. Eliquis post procedure Stroke work up- echo, carotids, lipids and A1C, PT/OT/ST , MRI BRain can not be done, pt has PM that is not compatible Continue care for all medical issues as you are doing. No further recommendations. Subjective Date of service: 05/05/19 Interval history: Pt's symptoms have resolved. On heparin drip. For EGD tomorrow. Objective - Vital Sign Vital Signs - 12hr 05/05/19 05/05/19 05/05/19 08:10 09:33 10:33 Temperature 97.8 F Pulse Rate 68 67 Respiratory 16 Rate Blood Pressure 153/70 O2 Sat by Pulse 96 93 Oximetry 05/05/19 16:31 Temperature 97.7 F Pulse Rate 68 Respiratory 18 Rate Blood Pressure 167/86 O2 Sat by Pulse 99 Oximetry - General Apperance Constitutional: comfortable - EENT EENT: PERRL, mucous membranes moist - Respiratory Respiratory: lungs clear - Cardiovascular Cardiovascular: regular rate - Gastrointestinal Gastrointestinal: normoactive bowel sounds - Neurologic Cranial nerve examination: PERRL, EOMI, face symmetric Motor examination - right side: 5/5: biceps, triceps, wrist flexion, wrist extension, wrap turner, hip flexors, knee extensors, dorsiflexion, toe extension (EHL), plantarflexion Motor examination - left side: 5/5: biceps, triceps, wrist flexion, wrist extension, wrap turner, hip flexors, knee extensors, dorsiflexion, toe extension (EHL), plantarflexion Reflexes: 1+: ankle, bicep, knee, tricep - Laboratory Findings CBC and BMP: 05/04/19 19:30 05/04/19 10:45 Abnormal Lab Findings: Abnormal Labs 05/04/19 05/04/19 05/04/19 10:45 10:45 10:45 MCH 33 H Lymph % (Auto) 8.0 L [place] % (Auto) 7.9 H Lymph # 0.6 L Seg Neutrophils % 80.5 H PT 15.1 H INR 1.22 H APTT Heparin Anti-Xa Level Sodium 136 L Chloride 97.0 L Creatinine 0.6 L LDL Cholesterol Direct Urine pH 05/04/19 05/04/19 05/05/19 18:45 19:30 03:03 MCH Lymph % (Auto) [place] % (Auto) Lymph # Seg Neutrophils % PT 21.4 H INR 1.90 H APTT 42.4 H Heparin Anti-Xa Level Sodium Chloride Creatinine LDL Cholesterol Direct 47 L Urine pH 8.0 H 05/05/19 03:03 MCH Lymph % (Auto) [place] % (Auto) Lymph # Seg Neutrophils % PT INR APTT Heparin Anti-Xa Level 0.14 L Sodium Chloride Creatinine LDL Cholesterol Direct Urine pH
[2019-05-05] MEDS: APRESOLINE IV SCH (20:27)
[2019-05-06] MEDS: APRESOLINE IV SCH ×4 (01:35→21:17)
[2019-05-06] MEDS ORDERED: ATIVAN IV ONE (03:14)
[2019-05-06] MEDS: SYNTHROID PO SCH (05:02)
[2019-05-06 05:33] LABS: Hematocrit 40.1 % (30.3-42.9); Hemoglobin 13.7 gm/dl (10.1-14.3)
[2019-05-06 09:41] LABS: INR 1.21 (0.87-1.13)
--- NOTE | 2019-05-06 10:23 | Progress Note ---
History Interval history: CVA. Continue with telemetry monitoring. CTA head and neck negative. MRI brain cannot be done secondary to pacemaker. Carotid Dopplers with less than 50% stenosis. Echocardiogram reveals no left ventricular hypertrophy but diffuse global hypokinesis with EF of 35-40%. No ASD or PFO. No embolic source reported. Neurology following. Dysphagia. EGD today per GI. Hypertension. Continue antihypertensive medications. Atrial fibrillation. Continue heparin drip for now. Hospitalist Physical - Constitutional Vitals: Temp Pulse Resp BP Pulse Ox 97.9 F 72 16 151/87 96 05/06/19 08:27 05/06/19 08:27 05/06/19 08:27 05/06/19 08:27 05/06/19 08:46 General appearance: Present: mild distress Results - Labs CBC & Chem 7: 05/06/19 03:57 05/04/19 10:45 Labs: Laboratory Last Values WBC 7.7 K/mm3 (4.5-11.0) 05/04/19 10:45 RBC 4.17 M/mm3 (3.65-5.03) 05/04/19 10:45 Hgb 13.7 gm/dl (10.1-14.3) 05/06/19 03:57 Hct 40.1 % (30.3-42.9) 05/06/19 03:57 MCV 96 fl (79-97) 05/04/19 10:45 MCH 33 pg (28-32) H 05/04/19 10:45 MCHC 34 % (30-34) 05/04/19 10:45 RDW 14.6 % (13.2-15.2) 05/04/19 10:45 Plt Count 198 K/mm3 (140-440) 05/06/19 03:57 Lymph % (Auto) 8.0 % (13.4-35.0) L 05/04/19 10:45 [place] % (Auto) 7.9 % (0.0-7.3) H 05/04/19 10:45 Eos % (Auto) 3.0 % (0.0-4.3) 05/04/19 10:45 Baso % (Auto) 0.6 % (0.0-1.8) 05/04/19 10:45 Lymph # 0.6 K/mm3 (1.2-5.4) L 05/04/19 10:45 [place] # 0.6 K/mm3 (0.0-0.8) 05/04/19 10:45 Eos # 0.2 K/mm3 (0.0-0.4) 05/04/19 10:45 Baso # 0.0 K/mm3 (0.0-0.1) 05/04/19 10:45 Seg Neutrophils % 80.5 % (40.0-70.0) H 05/04/19 10:45 Seg Neutrophils # 6.2 K/mm3 (1.8-7.7) 05/04/19 10:45 PT 15.0 Sec. (12.2-14.9) H 05/06/19 09:09 INR 1.21 (0.87-1.13) H 05/06/19 09:09 APTT 42.4 Sec. (24.2-36.6) H 05/04/19 19:30 15.7 Sec. (15.1-19.6) 05/04/19 10:45 Heparin Anti-Xa Level 0.30 U.I./ml (0.3-0.7) 05/05/19 09:13 Sodium 136 mmol/L (137-145) L 05/04/19 10:45 Potassium 3.9 mmol/L (3.6-5.0) 05/04/19 10:45 Chloride 97.0 mmol/L (98-107) L 05/04/19 10:45 Carbon Dioxide 24 mmol/L (22-30) 05/04/19 10:45 19 mmol/L 05/04/19 10:45 BUN 11 mg/dL (7-17) 05/04/19 10:45 0.6 mg/dL (0.7-1.2) L 05/04/19 10:45 Estimated GFR > 60 ml/min 05/04/19 10:45 18 % 05/04/19 10:45 Glucose 90 mg/dL (65-100) 05/04/19 10:45 Calcium 9.2 mg/dL (8.4-10.2) 05/04/19 10:45 < 0.010 ng/mL (0.00-0.029) 05/04/19 10:45 Triglycerides 41 mg/dL (2-149) 05/05/19 03:03 Cholesterol 85 mg/dL (50-199) 05/05/19 03:03 47 mg/dL (50-130) L 05/05/19 03:03 41 mg/dL (40-59) 05/05/19 03:03 2.07 % 05/05/19 03:03 Yellow (Yellow) 05/04/19 18:45 Clear (Clear) 05/04/19 18:45 8.0 (5.0-7.0) H 05/04/19 18:45 Ur Specific [place] 1.030 (1.003-1.030) 05/04/19 18:45 30 mg/dl mg/dL (Negative) 05/04/19 18:45 Neg mg/dL (Negative) 05/04/19 18:45 Tr mg/dL (Negative) 05/04/19 18:45 Neg (Negative) 05/04/19 18:45 Neg (Negative) 05/04/19 18:45 Neg (Negative) 05/04/19 18:45 < 2.0 mg/dL (<2.0) 05/04/19 18:45 Ur Leukocyte Esterase Neg (Negative) 05/04/19 18:45 < 1.0 /HPF (0.0-6.0) 05/04/19 18:45 2.0 /HPF (0.0-6.0) 05/04/19 18:45 Active Medications - Current Medications Current Medications: Generic Name Dose Route Start Last Admin Trade Name Freq PRN Reason Stop Dose Admin Acetaminophen 650 mg 05/04/19 13:20 Tylenol PO Q4H PRN Pain, Mild (1-3) Aspirin 325 mg 05/05/19 10:00 05/05/19 11:29 Aspirin PO Not Given QDAY [facility] Bisacodyl 10 mg 05/04/19 13:20 Dulcolax [place] QDAY PRN Constipation Clorazepate Dipotassium 7.5 mg 05/04/19 22:00 05/05/19 22:08 Tranxene PO Not Given BID [facility] Hydralazine HCl 5 mg 05/05/19 20:00 05/06/19 01:35 Apresoline IV 5 mg Q6H [facility] Administration Heparin Sodium/Sodium Chloride 25,000 unit in 500 mls @ 14 mls/hr 05/04/19 19:00 05/05/19 03:05 Heparin/ 0.45% Nacl-25,000 Unit/500 Ml IV 700 units/hr TITR [facility] 14 mls/hr Titration Protocol 700 UNITS/HR Dextrose/Sodium Chloride 1,000 mls @ 75 mls/hr 05/05/19 16:00 05/06/19 06:47 D5/0.45ns IV 75 mls/hr DIRECT [facility] Administration Levothyroxine Sodium 75 mcg 05/05/19 06:00 05/06/19 05:02 Synthroid PO Not Given 0600 [facility] Magnesium Hydroxide 30 ml 05/04/19 13:20 Milk Of Magnesia PO Q4H PRN Constipation Metoclopramide HCl 10 mg 05/04/19 14:20 Reglan PO Q6H PRN Nausea And Vomiting Miscellaneous Medication 4 gm 05/04/19 22:00 Tiotropium Br/Olodaterol Hcl [Stiolto Respimat Inhal [place]] IH BID [facility] Ondansetron HCl 4 mg 05/04/19 13:20 Zofran IV Q8H PRN Nausea And Vomiting Promethazine HCl 25 mg 05/04/19 13:20 Phenergan [place] Q6H PRN Nausea And Vomiting Sodium Chloride 10 ml 05/04/19 13:20 Sodium Chloride Flush Syringe 10 Ml IV PRN PRN LINE FLUSH Nutrition/Malnutrition Assess - Dietary Evaluation Nutrition/Malnutrition Findings: Nutrition Notes Start: 05/05/19 16:56 Freq: Status: Active Protocol: Document 05/05/19 16:56 RM (Rec: 05/05/19 17:01 [id number]) Nutrition Notes Need for Assessment generated from: [facility] Initial or Follow up Assessment Current Diagnosis Stroke Other Pertinent Diagnosis Dysarthria, Hemiparesis Current Diet NPO Labs/Tests Reviewed Pertinent Medications Reviewed Height 5 ft 4 in Weight 46.6 kg Usual Body Weight 43.64 kg [place] Body Weight (kg) 54.54 BMI 17.6 Subjective/Other Information Screened for malnutrition. Pt stated that [employer] she ate 2-3 meals daily ie: oatmeal w/ fruit, sandwich, etc. Stated that her UBW was 96 lbs 2 months ago. Noted temporal and orbital wasting. Burn Absent Trauma Absent #1 Nutrition Diagnosis Malnutrition Etiology CVA, hemiparesis As Evidenced by Signs and Symptoms BMI 17.6, temporal wasting, orbital wasting, pt statement that [employer] she ate 2-3 meals daily Is patient on ventilator? No Is Patient Ambulatory and/or Out of Bed Yes REE-(Winfred-St. or-ambulatory/OOB) [ 1197.300 [id number]] Kcal/Kg value to use for calculation 32 Approximate Energy Requirements Using 1491 kcal/Kg Calculation Used for Recommendations Kcal/kg Additional Notes Protein Needs: 56-70g (1.2-1. 5g/kg) Fluid Needs: 1 ml/kcal Nutrition Intervention Change Diet Order: Advance diet when medically able Add Supplement/Snack (indicate name/kcal Ensure Enlive vanilla 1 daily /protein ) Provides kCal: 350 Provides Protein (gm) 20 Goal #1 Diet advancement Anticipated Discharge Needs: Unable to determine at this time Follow-Up By: 05/07/19 Additional Comments Follow for PO and ONS intakes
[2019-05-06] MEDS: ASPIRIN PO SCH (12:23)
[2019-05-06] MEDS: TRANXENE PO SCH ×2 (12:23→21:22)
[2019-05-06] MEDS ORDERED: NACL 0.9% 1000 ML 1,000 ML IV SCH (14:00)
[2019-05-06] MEDS ORDERED: DIPRIVAN 10 MG/ML IV ONE (16:30)
--- NOTE | 2019-05-06 16:32 | Anesthesia Day of Surgery ---
Anesthesia Day of Surgery - Day of Surgery Patient Examined: Yes Patient H&P Reviewed: Yes Patient is NPO: Yes
--- NOTE | 2019-05-06 16:32 | Anesthesia Consultation ---
Anesthesia Consult and Med Hx Date of service: 05/06/19 - Airway Anesthetic Teeth Evaluation: Dentures ROM Head & Neck: Adequate Mental/Hyoid Distance: Adequate Mallampati Class: Class I Intubation Access Assessment: Probably Good - Pulmonary Exam CTA: Yes - Cardiac Exam Cardiac Exam: No Murmur (irregular rhythm) - Pre-Operative Health Status ASA Pre-Surgery Classification: ASA3 Proposed Anesthetic Plan: MAC - Pulmonary SOB: Yes (chronic with exertion) COPD: Yes Home Oxygen Therapy: Yes (2L prn) - Cardiovascular System Hx Hypertension: Yes Hx Heart Attack/AMI: No Hx Percutaneous Transluminal Coronary Angioplasty (PTCA): No Hx Cardia Arrhythmia: Yes (a-fib off eliquis since 05/02; currently on heparin gtt) - Central Nervous System CVA: Yes (hx TIA) - Gastrointestinal Hx Gastroesophageal Reflux Disease: Yes (dysphagia) - Endocrine Hx Renal Disease: No Hx Liver Disease: No Hx Insulin Dependent Diabetes: No Hx Hypothyroidism: Yes - Hematic Hx Anemia: Yes - Other Systems Hx Obesity: No
--- NOTE | 2019-05-06 16:54 | Operative Report ---
Operative Report Operative Report: Esophagogastroduodenoscopy Procedure Note Date of procedure: 05/06/2019 Endoscopist: Yong Iyer Pre-op diagnosis: Dysphagia Post-op diagnosis: Severe ring in the upper esophagus/UES Anesthesia: MAC Complications: No immediate complications Estimated blood loss: minimal Procedure: After consent was obtained, the patient was placed in the left lateral decubitus position. The olympus endoscope was inserted into the patient's mouth under direct vision, and advanced into the 2nd portion of the d uodenum without difficulty. The patient tolerated the procedure well. The views of the mucosa were good. Patient's vital signs were monitored continuously throughout the procedure. Findings: There was a severe stricture just below the upper esophageal stricture. This was traversed with moderate resistance with subsequent auto-dilation from the endoscope. 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 The rest of the esophagus appeared normal with no stricture seen in the remaining portion of the esophagus. The stomach and duodenum appeared normal. Impression: 1. 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 Traversed with moderate resistance with auto- dilatation from the endoscope. The rest of the esophagus appeared normal. Recommendations: -restart clears and monitor symptoms -restart heparin drip in 6 hours if no signs of bleeding -PPI daily -EGD with dilatation prn
[2019-05-06] MEDS ORDERED: APRESOLINE IV ONE (18:35)
[2019-05-06] MEDS: HEPARIN/ 0.45% NACL-25,000 UNIT/500 ML 25,000 UNIT/500 ML BAG IV SCH (21:10)
[2019-05-06] MEDS: SODIUM CHLORIDE FLUSH SYRINGE 10 ML IV PRN (21:18)
[2019-05-07] MEDS ORDERED: HALDOL IV ONE ×2 (01:25→04:12)
[2019-05-07] MEDS: SYNTHROID PO SCH (05:48)
[2019-05-07] MEDS: APRESOLINE IV SCH ×2 (06:06→10:12)
[2019-05-07 08:33] VITALS: BP 163/77
[2019-05-07] MEDS: TRANXENE PO SCH (10:05)
[2019-05-07] MEDS: ASPIRIN PO SCH (10:06)
[2019-05-07] MEDS: SODIUM CHLORIDE FLUSH SYRINGE 10 ML IV PRN (10:12)
--- NOTE | 2019-05-07 11:19 | Discharge Summary ---
Providers - Providers Date of Admission: 05/04/19 13:20 Date of discharge: 05/07/19 Attending physician: KHURRAM MICHELLE 05/04/19 13:20 Occupational Therapy Evaluate and Treat [CONS] Routine Comment: Reason For Exam: Neuro deficits Physical Therapy Evaluation and Treat [CONS] Routine Comment: Reason For Exam: Neuro deficits 05/04/19 13:21 Speech Therapy Evaluation and Treat [CONS] Routine Reason For Exam: swallow eval 05/04/19 13:25 Consult to Physician [CONS] Routine Comment: Consulting Provider: WALT KEEN Physician Instructions: Reason For Exam: CVA Primary care physician: MARCELA STAUFFER Hospitalization Reason for admission: cva Condition: Stable Hospital course: Patient is a 78 y/o female with PMH of HTN, Afib, malnutrition, and COPD who presented to ED with stroke symptoms likely 2/2 TIA. The patient was seen by neurology in consultation. Neurology believes that the patient developed a TIA after being off her anticoagulation (Eliquis) x 2 days for procedure. The patient was seen as an inpatient with a GI consult at [facility] 02/2019 for dysphagia with an outpatient EGD with possible dilation scheduled for this week, however patient presented to ED with aforementioned stroke symptoms. 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 The patient was placed on heparin drip. EGD was performed and findings included a severe stricture just below the upper esophageal stricture. This was traversed with moderate resistance with subsequent auto-dilation from the endoscope. 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 The rest of the esophagus appeared normal with no stricture seen in the remaining portion of the esophagus. GI recommended advancing diet which she tolerated. PPI and follow- up as an outpatient with EGD with dilatation when necessary. With regards to her CVA/TIA, recent return back to her baseline with no neurological deficits. CTA head and neck negative. MRI brain cannot be done secondary to pacemaker. Carotid Dopplers with less than 50% stenosis. Echocardiogram reveals no left ventricular hypertrophy but diffuse global hypokinesis with EF of 35-40%. No ASD or PFO. No embolic source reported. Physical therapy recommended discharge with home health PT. Dedicated discharge time 32 minutes. Disposition: [id number] HOME UNDER HOME [facility] Time spent for discharge: 32 - Discharge Diagnoses (1) Esophageal stricture Status: Acute (2) Dysphagia Status: Acute (3) Aphasia Status: Acute (4) Atrial fibrillation Status: Acute Qualifiers: Atrial fibrillation type: persistent Qualified Code(s): I48.1 - Persistent atrial fibrillation (5) CVA (cerebral vascular accident) Status: Acute Qualifiers: Precerebral and cerebral artery: middle cerebral artery Laterality of affected vessel: left Core Measure Documentation - Palliative Care Palliative Care/ Comfort Measures: Not Applicable - Core Measures Any of the following diagnoses?: stroke - Stroke Discharge Requirements Statin for LDL = or >70 mg/dl on DC: Yes Anticoag for atrial fib/atrial flutter: Yes Antithrombotic for ischemic stroke: Yes Exam - Constitutional Vitals: Temp Pulse Resp BP Pulse Ox 98.4 F 67 18 163/77 98 05/07/19 08:32 05/07/19 10:12 05/07/19 08:32 05/07/19 10:12 05/07/19 08:32 General appearance: Present: no acute distress, well-nourished - EENT Eyes: Present: PERRL ENT: hearing intact, clear oral mucosa - Neck Neck: Present: supple, normal ROM - Respiratory Respiratory effort: normal Respiratory: bilateral: CTA - Cardiovascular Heart Sounds: Present: S1 & S2. Absent: rub, click - Extremities Extremities: pulses symmetrical, No edema Peripheral Pulses: within normal limits - Abdominal General gastrointestinal: Present: soft, non-tender, non-distended, normal bowel sounds Female genitourinary: Present: normal - Integumentary Integumentary: Present: clear, warm, dry - Musculoskeletal Musculoskeletal: gait normal, strength equal bilaterally - Psychiatric Psychiatric: appropriate mood/affect, intact judgment & insight - Neurologic Neurologic: CNII-XII intact, moves all extremities Plan Activity: advance as tolerated Weight Bearing Status: Weight Bear as Tolerated Diet: regular Special Instructions: physical therapy, home health RN Follow up with: MARCELA STAUFFER MD [Primary Care Provider] - 3-5 Days DANIEL GANN MD [Staff Physician] - 7 Days WALT KEEN MD [Staff Physician] - 7 Days Prescriptions: hydrALAZINE [Apresoline TAB] 50 mg PO TID #90 tablet Aspirin 325 mg PO QDAY #30 tablet cloNIDine [Catapres] 0.1 mg PO QDAY #30 tablet Losartan [Cozaar] 100 mg PO QDAY #30 tablet Apixaban [Eliquis] 2.5 mg PO BID #60 tablet Metoprolol Tartrate 200 mg PO BID #60 tablet Levothyroxine [Synthroid] 75 mcg PO QAM #30 tablet Clorazepate Dipotassium [Tranxene T-Tab] 7.5 mg PO BID #60 tablet
--- NOTE | 2019-05-07 12:33 | Gastroenterology Progress Note ---
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 No vomiting or abd pain. -will continue nutrition for dietary recommendation (likely needs supplement such as ensure, boost, etc) -continue full liquid diet, may advance to soft foods if tolerated -continue PPI -okay to resume anticoagulation -patient okay to d/c home per GI standpoint with f/u in clinic in 1-2 weeks to schedule repeat EGD with dilation Subjective Date of service: 05/07/19 Principal diagnosis: dysphagia Interval history: Patient resting in bed this am w/o acute distress. Reports continued difficulty with soft foods and liquids this am but during exam is drinking ensure w/o difficulty. No abd pain. Objective - Constitutional Vitals: Temp Pulse Resp BP Pulse Ox 98.4 F 67 18 163/77 98 05/07/19 08:32 05/07/19 10:12 05/07/19 08:32 05/07/19 10:12 05/07/19 08:32 General appearance: no acute distress - Respiratory Respiratory effort: normal - Cardiovascular Rhythm: regular - Gastrointestinal General gastrointestinal: Present: soft, non-tender, non-distended, normal bowel sounds - Labs CBC & Chem 7: 05/06/19 03:57 05/04/19 10:45 Labs: Laboratory Results - last 24 hr 05/07/19 05/07/19 03:58 10:12 Heparin Anti-Xa Level 0.19 L 0.25 L
[2019-05-07] MEDS ORDERED: PROTONIX PO SCH (14:00)
== END 2019-05-07 13:20 | disposition home health service (06) | DRG 64 ==
LOC: ED 10:15 → 4A 13:20
PROVIDERS: ADMIT Internal Medicine; ATTEND Hospitalist
PROC: 0D718ZZ Dilation of Upper Esophagus, Via Natural or Artificial Opening Endoscopic (ICD-10-PCS; principal; 2019-05-06)
DX: I63.9 Cerebral infarction, unspecified (principal); E43 Unspecified severe protein-calorie malnutrition; I48.1 Persistent atrial fibrillation; Z68.1 Body mass index [BMI] 19.9 or less, adult; G81.91 Hemiplegia, unspecified affecting right dominant side; R47.01 Aphasia; K22.2 Esophageal obstruction; I10 Essential (primary) hypertension; I16.0 Hypertensive urgency; R13.10 Dysphagia, unspecified; J44.9 Chronic obstructive pulmonary disease, unspecified; K21.9 Gastro-esophageal reflux disease without esophagitis; E03.9 Hypothyroidism, unspecified; R47.81 Slurred speech; R29.703 NIHSS score 3; Z79.01 Long term (current) use of anticoagulants; Z95.0 Presence of cardiac pacemaker; Z82.49 Family history of ischemic heart disease and other diseases of the circulatory system; Z88.0 Allergy status to penicillin; Z79.899 Other long term (current) drug therapy
CPT/HCPCS: 36415; 70450; 70496; 70498; 74220; 80048; 80061; 81001; 84484; 85014; 85018; 85025; 85049; 85520; 85610; 85670; 85730; 87116; 93005; 93010; 93306; 93880; 94760; G0378; J0360; J1630; J1644; J2060; J2704; J7030; Q9967